=== PATIENT | male | born 1960 | race African-American/Black ===

== ENCOUNTER 2021-06-29 01:40 | Inpatient (IN) | payer OTHER ==
[~2021-06-29] VITALS: Ht 175.3 cm; Wt 73.5 kg
--- NOTE | 2021-06-29 01:45 | NUR ---
PT BIBRA C/O SEIZURE X2 MIN, PER . PT AAOX3 BREATHING EVENLY AND UNLABORED. PT ATTACHED TO MONITOR AND POX. SEIZURE PRECAUTIONS INITIATED. NEURO CHECKS INTACT. MD AT BEDSIDE. LEFT FOREARM 20G INITIATED, BLOOD SENT TO LAB. WILL CONTINUE TO MONITOR.
[2021-06-29 02:09] LABS: EOSINOPHILS % (AUTO) 6.1 % (0.0-6.0); HEMATOCRIT 46 % (39-51); HEMOGLOBIN 14.9 g/dL (13.5-17.5); LYMPHOCYTES # (AUTO) 1.4 K/uL (0.8-4.8); LYMPHOCYTES % (AUTO) 39.2 % (20.0-44.0); MEAN CORPUSCULAR HGB CONC 33 g/dl (31.0-36.0); MEAN CORPUSCULAR VOLUME 87 fL (80-96); MONOCYTES # (AUTO) 0.2 K/uL (0.1-1.30); MONOCYTES % (AUTO) 6.7 % (2.0-12.0); NEUTROPHILS # (AUTO) 1.6 K/uL (1.8-8.9); PLATELET COUNT (AUTO) 272 K/uL (150-450); RED BLOOD CELL COUNT(AUTO) 5.27 MIL/uL (4.5-6.0); WHITE BLOOD COUNT (AUTO) 3.5 K/uL (4.3-11.0)
[2021-06-29 02:24] LABS: ALANINE AMINOTRANSFERASE 22 U/L (12-78); ALBUMIN 3.7 g/dL (3.4-5.0); ALKALINE PHOSPHATASE 60 U/L (46-116); ASPARTATE AMINOTRANSFERASE 45 U/L (15-37); BILIRUBIN,DIRECT 0.1 mg/dL (0.0-0.2); BILIRUBIN,TOTAL 0.3 mg/dL (0.2-1.0); CALCIUM, SERUM 8.5 mg/dL (8.5-10.1); CARBON DIOXIDE 28 mmol/L (21-32); CHLORIDE 107 mmol/L (98-107); CREATININE 1.3 mg/dL (0.6-1.3); GLUCOSE 88 mg/dL (74-106); POTASSIUM 4.2 mmol/L (3.5-5.1); SODIUM SERUM 141 mmol/L (136-145); TOTAL PROTEIN, SERUM 7.7 g/dL (6.4-8.2); UREA NITROGEN, BLOOD 11 mg/dL (7-18)
--- NOTE | 2021-06-29 02:26 | NUR ---
URINE SENT TO LAB
[2021-06-29 02:41] LABS: ALCOHOL, BLOOD < 3 mg/dL (0-0)
[2021-06-29] MEDS ORDERED: LORAZEPAM INJ 2 MG/ML VIAL ONE (02:45)
--- NOTE | 2021-06-29 02:45 | NUR ---
PT WITNESSED HAVING SEIZURE. VERBAL ORDER FOR 2MG OF ATIVAN IVP X1 NOW
[2021-06-29] MEDS ORDERED: phenytoin SODIUM IV 250 MG/5 ML VIAL IV ONE ×2 (02:48→02:49)
[2021-06-29] MEDS ORDERED: PHENYTOIN EXTENDED RELEASE 100 MG CAPSULE PO ONE ×2 (03:00→04:21)
[2021-06-29] MEDS ORDERED: phenytoin SODIUM IV 1,000 MG in IV NS 0.9% 100 ML IV ONE (03:00)
[2021-06-29] MEDS ORDERED: LORAZEPAM INJ 2 MG/ML VIAL IV ONE (03:00)
--- NOTE | 2021-06-29 03:15 | NUR ---
Patient is resting comfortably in bed with eyes closed. Easily aroused. VSS
[2021-06-29] MEDS ORDERED: PHEN100C4 PO (03:21)
--- NOTE | 2021-06-29 04:18 | NUR ---
SILVERIOID SWABBED, SENT TO LAB.
--- NOTE | 2021-06-29 04:20 | NUR ---
MRSA SWAB COLLECTED AND SENT TO LAB. PATIENT'S BELONGINGS LIST DONE.
[2021-06-29] MEDS ORDERED: LORAZEPAM INJ 2 MG/ML VIAL IV PRN (04:30)
[2021-06-29] MEDS ORDERED: ONDANSETRON HCL/PF 4 MG/2 ML VIAL IVP PRN (04:30)
[2021-06-29] MEDS ORDERED: MORPHINE SULFATE INJ 2 MG/ML DISP.SYRIN IV PRN (04:30)
[2021-06-29] MEDS ORDERED: IV NS 0.9% 1,000 ML IV PRN (04:30)
[2021-06-29] MEDS ORDERED: ACETAMINOPHEN 325 MG TABLET PO PRN (04:30)
[2021-06-29] MEDS ORDERED: hydrALAZINE HCL IV 20 MG VIAL IV PRN (04:30)
--- NOTE | 2021-06-29 05:09 | NUR ---
LAB CALLED DARYL +
--- NOTE | 2021-06-29 05:24 | NUR ---
CALLED HOUSE SUP FOR BED
--- NOTE | 2021-06-29 05:42 | NUR ---
GAVE REPORT TO HERBIE OMALLEY
--- NOTE | 2021-06-29 06:00 | NUR ---
[facility] INTERN NOTE ADMIT 60 YEAR OLD MALE TO HEAVEN UNIT AT ROOM 109 ALERT ORIENTED X2 WITH DIAGNOSIS SEIZURE ON ROOM AIR O2:100% CONTINET TO BOWEL/BLADDER IV SITE IS ON LEFT FOREARM INTACT PATENT,SKIN INTACT ONLY LEFT AND RIGHT FOOT NAILS DEFORMITIES. SAFETY MEASURE IMPLEMENT BED IN LOW POSITON AND LOCKED CONTINUE TO MONITOR
[2021-06-29 06:25] VITALS: BP 125/65
[2021-06-29] MEDS: ENOXAPARIN SODIUM 40 MG/0.4 ML DISP.SYRIN SQ SCH (06:52)
[2021-06-29] MEDS ORDERED: LABETALOL HCL INJ 200 MG/40 ML VIAL IV PRN (07:00)
--- NOTE | 2021-06-29 07:27 | NUR ---
RN NOTE PATIENT REMAINS ON ALERT ORIENTED X2 VERBALLY RESPONSIVE NO SOB NOT ACUTE DISTRESS NOTED NO SEIZURE ENDORSE NEXT COMING SHIFT FOR CONTINUATION OF CARE.
--- NOTE | 2021-06-29 07:30 | NUR ---
RN OPENING NOTES Patient was received in bed and alert/oriented x4. Patient is on room air with saturation of 93%. left forearm 20 gauge IV site noted free of s/s of infiltration, saline lock. Bed is in lowest and locked position. HOB kept elevated. Call light with in reach. Will continue to monitor.Seizure precautions observed.
[2021-06-29 08:00] VITALS: BP 146/80
[2021-06-29 12:00] VITALS: BP 139/90
--- NOTE | 2021-06-29 15:00 | NUR ---
Patient c/o pain in tongue, no s/s of bleeding no swelling noted. Informed GROUNDS AND NURSERY SPECIALIST Mckinnon and made aware with no new orders.
[2021-06-29 16:00] VITALS: BP 148/88
[2021-06-29] MEDS: NICOTINE PATCH (7MG) 7 MG PATCH.TD24 TD SCH (17:24)
--- NOTE | 2021-06-29 18:52 | NUR ---
RN CLOSING NOTES Patient in bed and alert/oriented x4. Patient is on room air with saturation of 98%. Left forearm 20 gauge IV site noted free of s/s of infiltration, saline lock. Bed is in lowest and locked position. HOB kept elevated. Call light with in reach. Will continue to monitor.Seizure precautions observed. Will endorse to next shift for BILL. Informed MASK DESIGNER Mckinnon regarding sbp value of 154/90. Per Engine Watchman D/C normal saline as patient is able to tolerate po intake of liquids.No c/o headache.
--- NOTE | 2021-06-29 19:51 | NUR ---
RN NOTE PATIENT ALERT AND ORIENTED X4 ABLE TO MAKE NEEDS KNOWN. ON ROOM AIR, RESPIRATIONS EVEN AND UNLABORED. DENIES ANY PAIN AT THIS TIME. IV ACCESS ON LEFT FOREARM #20 PATENT AND INTACT, FLUSHED ASEPTICALLY. BED LOCKED AND IN LOWEST POSITION. CALL LIGHT WITHIN REACH. ALL NEEDS ANTICIPATED.
[2021-06-29 20:00] VITALS: BP 147/60
[2021-06-30] VITALS: BP 154/92
[2021-06-30 04:00] VITALS: BP 135/99
[2021-06-30 06:25] LABS: BASOPHILS % (AUTO) 0.5 % (0.0-2.0); EOSINOPHILS % (AUTO) 1.9 % (0.0-6.0); HEMATOCRIT 47 % (39-51); HEMOGLOBIN 15.3 g/dL (13.5-17.5); LYMPHOCYTES # (AUTO) 1.4 K/uL (0.8-4.8); LYMPHOCYTES % (AUTO) 31.7 % (20.0-44.0); MEAN CORPUSCULAR HGB CONC 33 g/dl (31.0-36.0); MEAN CORPUSCULAR VOLUME 86 fL (80-96); MONOCYTES # (AUTO) 0.4 K/uL (0.1-1.30); MONOCYTES % (AUTO) 9.5 % (2.0-12.0); NEUTROPHILS # (AUTO) 2.5 K/uL (1.8-8.9); NEUTROPHILS % (AUTO) 56.4 % (43.0-81.0); PLATELET COUNT (AUTO) 251 K/uL (150-450); RED BLOOD CELL COUNT(AUTO) 5.42 MIL/uL (4.5-6.0); WHITE BLOOD COUNT (AUTO) 4.5 K/uL (4.3-11.0)
[2021-06-30 06:50] LABS: ALBUMIN 3.5 g/dL (3.4-5.0); BILIRUBIN,TOTAL 0.5 mg/dL (0.2-1.0); CALCIUM, SERUM 8.4 mg/dL (8.5-10.1); CREATININE 1.2 mg/dL (0.6-1.3); MAGNESIUM 2.3 mg/dL (1.8-2.4); PHOSPHORUS 3.7 mg/dL (2.5-4.9); POTASSIUM 3.5 mmol/L (3.5-5.1); TOTAL PROTEIN, SERUM 7.5 g/dL (6.4-8.2)
--- NOTE | 2021-06-30 07:10 | NUR ---
RN NOTE PATIENT ALERT AND ORIENTED X4. ON ROOM AIR, RESPIRATIONS EVEN AND UNLABORED. ALL NEEDS ATTENDED PROMPTLY. BED LOCKED AND IN LOWEST POSITION. CALL LIGHT WITHIN REACH. ENDORSED TO AM SHIFT.
--- NOTE | 2021-06-30 07:36 | NUR ---
RN NOTE PATIENT IS IN BED WITH HOB AT SEMI FOWLERS POSITION. PATIENT IS ON ROOM AIR WITH NO SIGNS OF LABORED BREATHING. PATIENT IS AOX4. LFA 20 IS PATENT AND INTACT. BED IS LOCKED IN THE LOWEST POSITION, 3 GUARD RAILS RAISED, CALL [place]AVITT WITHIN REACH, AND ALL HOSPITAL SAFETY PRECAUTIONS ARE BEING FOLLOWED. WILL CONTINUE TO MONITOR THROUGHOUT SHIFT.
[2021-06-30 08:00] VITALS: BP 153/99
[2021-06-30] MEDS: PHENYTOIN EXTENDED RELEASE 100 MG CAPSULE PO SCH ×3 (08:02→16:03)
[2021-06-30] MEDS: NICOTINE PATCH (7MG) 7 MG PATCH.TD24 TD SCH (08:02)
[2021-06-30] MEDS: ENOXAPARIN SODIUM 40 MG/0.4 ML DISP.SYRIN SQ SCH (08:03)
[2021-06-30] MEDS ORDERED: ASPI-1420 PO (11:56)
[2021-06-30 12:00] VITALS: BP 151/103
[2021-06-30 16:00] VITALS: BP 122/96
--- NOTE | 2021-06-30 16:15 | NUR ---
RN NOTE PATIENT IS DISCHARGED IN STABLE CONDITION WITH .
== END 2021-06-30 15:00 | disposition home or self-care (01) | DRG 53 ==
LOC: ER 01:44 → TELE1 05:38
PROVIDERS: ADMIT Internal Medicine; ATTEND Internal Medicine
DX: G40.409 Other generalized epilepsy and epileptic syndromes, not intractable, without status epilepticus (principal); U07.1 COVID-19; Z79.899 Other long term (current) drug therapy; Z91.14 Patient's other noncompliance with medication regimen; F17.200 Nicotine dependence, unspecified, uncomplicated; F19.10 Other psychoactive substance abuse, uncomplicated
CPT/HCPCS: 36415; 70450-TC; 71045-TC; 80048-TC; 80053-TC; 80076-TC; 80185-TC; 83735-TC; 84100-TC; 85025-TC; 85378-TC; 85730-TC; 86140-TC; 87081-TC; C9803; G0378; G0480; J1165; J1650; J2060; J7030